=== PATIENT | male | born 1960 | race Caucasian/White ===

== ENCOUNTER → 2021-03-07 13:38 | Outpatient (BNVA) | payer OTHER, MEDICARE, SELFPAY | PROVIDERS: Visit Provider Surgery | DX: Z12.11 Encounter for screening for malignant neoplasm of colon (principal); Z20.822 Contact with and (suspected) exposure to COVID-19 | CPT/HCPCS: 87635 ==

== ENCOUNTER → 2021-03-21 13:00 | Outpatient (BNVA) | payer MEDICARE, OTHER, SELFPAY | PROVIDERS: Visit Provider Surgery | DX: Z20.822 Contact with and (suspected) exposure to COVID-19 (principal); Z11.52 Encounter for screening for COVID-19 | CPT/HCPCS: 87635 ==

== ENCOUNTER 2021-03-27 06:49 | Day surgery (SDC) | payer MEDICARE, OTHER, SELFPAY ==
[2021-03-11 13:36] VITALS: BMI 34.9
--- NOTE | 2021-03-27 07:13 | P.ANESASSM_ITS ---
Pre-Anesthetic Assessment Pre-Anesthetic Assessment: Height/Weight: Height 1.73 m Weight 104.326 kg Preop Diagnosis: screening Proposed Procedure: Operation Date: 03/27/21 08:15 Proposed Procedures p Colonoscopy 11979 Z12.11(Not Applicable) - Blas Avila MD Familial anesthetic complications: None (though states he had a colonoscopy without sedation before and it stressed him out so much he almost went into crisis) Last intake: > 8hrs Social: Social History: Tobacco and No alcohol Exam: Pre-Anes Outpt Exam: alert, oriented x 3, clear to auscultation bilaterally and regular rate & rhythm Airway: MP: 4 Dentition: Caps and Other ( they fixed all up 2 weeks ago ) Additional comments: large neck and tongue Pulmonary: Pulmonary: COPD (bronchitis - Takes albuterol inhaler) and Sleep apnea (central and obstructive) 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 States he will take his stress dose before procedure (he has medication with him). Neuropsych: Comments: Parkinson's Anesthetic Plan: ASA status: 3 Anesthesia: MAC Risk of > 500 ml blood loss (7ml/kg in children): No Other Pertinent Information: Check glucose - states low glucose can trigger an addisonian crisis PFSH Anesthesia PFSH: Social History Smoking and tobacco status: never smoked Data Anesthesia Cardiac Studies: No Data to Display
--- NOTE | 2021-03-27 08:00 | P.HP_ITS ---
Same Day Surgery H&P Indication for Procedure/HPI DATE OF PROCEDURE: March 27, 2021 CHIEF COMPLAINT/INDICATIONFOR SURGICAL PROCEDURE: Screening colonoscopy PREOP DIAGNOSIS: screeningColonoscopy PLANNED PROCEDRUE: Operation Date: 03/27/21 08:15 Proposed Procedures p Colonoscopy 17275 Z12.11(Not Applicable) - Blas Avila MD 01/24/2021 This is a pleasant 60 years old gentleman referred to my practice for screening colonoscopy. Patient denies history of bleeding per rectum or colon cancer and also denies nonintentional weight loss. Had a colonoscopy back in 2004 and was found to have diverticulosis. 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 daily. And he would receive additional doses at stress episodes. Patient also reports that he has history of Parkinson's disease. And he has been on steroids for the past 10 years and denies being on any PPI therapy. Interim history 03/27/2021 Patient comes today for screening colonoscopy Patient may Mention to me that he really had 10 mg of hydrocortisone today as a stress dose ROS All systems have been reviewed negative except as per the above or per problem list Medications/Allergies* Home Medications Medication Instructions Recorded Confirmed Type benztropine 0.5 mg tablet 0.5 mg PO DAILY 01/24/21 03/27/21 History carbidopa 25 mg-levodopa 100 mg 1 tab PO TID 01/24/21 03/27/21 History tablet citalopram 40 mg tablet 40 mg PO DAILY 01/24/21 03/27/21 History ergocalciferol (vitamin D2) 1,250 50,000 unit PO DAILY cap 01/24/21 03/27/21 History mcg (50,000 unit) capsule hydrocortisone 10 mg tablet 10 mg PO TID 01/24/21 03/27/21 History hydroxyzine pamoate 50 mg capsule 50 mg PO BID 01/24/21 03/27/21 History cyanocobalamin (vitamin B-12) 2,500 mcg SUBLINGUAL DAILY 03/11/21 03/27/21 History [Vitamin B-12] epinephrine [Epi E-Z Pen] 0.3 mg IM PRN PRN 03/11/21 03/27/21 History ferrous sulfate 27 mg PO DIRECTED 03/11/21 03/27/21 History kmmhunozmmvg-loapijmz-uvafot 1 tab PO DAILY 03/11/21 03/27/21 History [Multivitamin 50 Plus] vitamin K2 100 mcg PO DAILY 03/11/21 03/27/21 History Allergies/Adverse Reactions Allergy/AdvReac Type Severity Reaction Status Date / Time ropinirole [From Requip] Allergy Severe Unknown Verified 03/27/21 09:12 Pertinent History/Comorbid Conditions* Social History Smoking and tobacco status: never smoked Pertinent Exam Findings alert, oriented x 3, clear to auscultation bilaterally, regular rate & rhythm and procedure specific exam findings (Abdominal examination nontender nondistended soft) Recommendations Surgery/Procedure today (Colonoscopy with possible Bx) Other Plans: Plan of care; After thorough history and physical examination and reviewing the chart, plan to perform screening colonoscopy. I discussed with the patient in details the risks,benefits,alternatives and indications.The risk of aspiration, bleeding, soft tissue injury, perforation of the colon and other potential concomitant complications were explained to the patient in details,also the potential need for Laproscoy/Laparotomy to repair any related complications including but not limited to colectomy and or Closotomy.The patient understood this well and did agree to proceed. Rationale was carefully and clearly discussed with the patient.Appropriate informed consent have been reviewed and signed All questions have been answered and all concerns have been addressed to patient's satisfaction. Verbal and written Instructions were given to the patient for colonoscopy prep Coding Level of Care Code Acute [employer] for Ramila Alfonso
[2021-03-27] MEDS: sodium chloride 0.9% 1,000 ML 30 ML IV (08:11)
[2021-03-27 08:18] VITALS: BP 160/104; PULSE 89; RESP 18; TEMP 36.2; O2SAT 97
[2021-03-27 10:10] VITALS: BP 100/63; PULSE 66; RESP 16; TEMP 36.6; O2SAT 98
[2021-03-27 10:43] VITALS: BP 150/105; PULSE 66; RESP 18; O2SAT 95
--- NOTE | 2021-03-27 11:31 | ANE.PACU2 ---
Inpatient post-anesthesia follow up: Airway intact: Yes Vital signs: Temperature 97.8 F Pulse Rate 66 Respiratory Rate 18 Blood Pressure 150/105 Pulse Oximetry 95 Oxygen Delivery Me thod Simple Mask Oxygen Flow Rate 6 Fraction of Inspir ed Oxygen Hydration adequate: Yes Mental status: Baseline
== END 2021-03-27 11:20 | disposition home or self-care (01) ==
PROVIDERS: PCP Family Medicine; Visit Provider Surgery
PROC: 0DJD8ZZ Inspection of Lower Intestinal Tract, Via Natural or Artificial Opening Endoscopic (ICD-10-PCS; CPT 45378; principal; 2021-03-27 08:15)
DX: Z12.11 Encounter for screening for malignant neoplasm of colon (principal); E27.1 Primary adrenocortical insufficiency; Z79.52 Long term (current) use of systemic steroids; G20 Parkinson's disease; D12.5 Benign neoplasm of sigmoid colon; K57.30 Diverticulosis of large intestine without perforation or abscess without bleeding; J44.9 Chronic obstructive pulmonary disease, unspecified; G47.33 Obstructive sleep apnea (adult) (pediatric)
CPT/HCPCS: 45385; 88305; 96360; 96361; J2704; J7030

== ENCOUNTER 2023-01-19 13:52 | Outpatient (CLI) | payer MEDICARE, OTHER, SELFPAY ==
--- NOTE | 2023-01-19 13:57 | CT_ITS ---
WS: [id number] CT NECK TECHNIQUE: Contrast-enhanced CT of the neck with coronal and sagittal reformatted images. CLINICAL INFORMATION: DYSPHONIA COMPARISON: None. DLP: 166.[address] scans at [facility] use at least one of these dose optimization techniques: automated e xposure control; mA and/or kV adjustment per patient size (includes targeted exams where dose is matc hed to clinical indication); or iterative reconstruction. FINDINGS: Mastoid air cells are well aerated. Paranasal sinuses are well aerated. Parotid glands are normal. No rmal submandibular glands. Normal posterior nasopharynx. Normal parapharyngeal fat. No evidence of abraham praglottic or glottic mass. Normal piriform sinuses. Normal glottis. Normal subglottic airway. Normal thyroid gland. Aortic calcification. Dense carotid bulb calcification LEFT carotid stent. Dense atheromatous plaque RIGHT carotid bulb wit h significant stenosis. Tiny residual lumen. Recommend further evaluation with CTA neck. Mild spondyl itic changes cervical spine. IMPRESSION: 1. Severe RIGHT ICA stenosis with dense carotid bulb calcification. Tiny residual ICA lumen. Recomme nd further evaluation with CTA neck. 2. LEFT carotid stent appears patent. 3. No evidence of supraglottic or glottic mass. Normal subglottic airway. 4. Salivary glands are normal. 5. No cervical lymphadenopathy.
[2023-01-19 14:31] LABS: Blood Urea Nitrogen 12 mg/dL (8-23); Glomerular Filtration Rate 61.6 mL/min (90-130)
[2023-01-19] MEDS: iohexol 350 mg/mL 500 mL Btl (per mL) IV (14:51)
== END 2023-01-19 13:53 | disposition home or self-care (01) ==
PROVIDERS: PCP Family Medicine; Visit Provider Specialist
DX: R49.0 Dysphonia (principal); I65.21 Occlusion and stenosis of right carotid artery; Z95.828 Presence of other vascular implants and grafts
CPT/HCPCS: 70491; 82565; 84520; Q9967

== ENCOUNTER 2023-02-17 14:09 | Outpatient (CLI) | payer MEDICARE, OTHER, SELFPAY ==
--- NOTE | 2023-02-17 14:12 | CT_ITS ---
WS: [id number] CTA NECK TECHNIQUE: Contrast enhanced CTA of the neck with coronal and sagittal reformatted images and maximum intensity projection (MIP) images. NASCET criteria utilized. CLINICAL INFORMATION: OCCLUSION STENOSIS OF R CAROTID ARTERY COMPARISON: None. DLP: 400.[address] scans at [facility] use at least one of these dose optimization techniques: automated e xposure control; mA and/or kV adjustment per patient size (includes targeted exams where dose is matc hed to clinical indication); or iterative reconstruction. FINDINGS: RIGHT: RIGHT common carotid artery is patent. Significant stenosis RIGHT proximal ICA with calcified atheromatous disease. Small residual ICA lumen. RIGHT ICA remains patent to the skull base. RIGHT ICA stenosis measures approximately 70%. LEFT: LEFT carotid artery is patent. Moderate calcified atheromatous plaque LEFT carotid bulb extendi ng into the ICA. LEFT carotid stent. LEFT carotid stent is patent. LEFT ICA remains patent to the sku ll base. Vertebral arteries are patent. Severe stenosis of the LEFT vertebral artery origin with calcified ath eromatous plaque. Vertebral arteries are patent to the basilar junction. Proximal basilar artery is p atent. Mastoid air cells are well aerated. Mild mucosal thickening in the ethmoid air cells. IMPRESSION: 1. RIGHT ICA stenosis measures 70% with dense calcified atheromatous plaque. 2. LEFT carotid stent without significant recurrent stenosis. 3. Vertebral arteries are patent. Severe stenosis of the LEFT vertebral artery origin. Both vertebra ls are patent to the basilar junction. 4. No other remarkable findings.
[2023-02-17] MEDS: iohexol 350 mg/mL 500 mL Btl (per mL) IV (15:07)
== END 2023-02-17 14:10 | disposition home or self-care (01) ==
LOC: RAD 14:10
PROVIDERS: PCP Family Medicine; Visit Provider Specialist
DX: I65.21 Occlusion and stenosis of right carotid artery (principal); Z95.828 Presence of other vascular implants and grafts; I65.02 Occlusion and stenosis of left vertebral artery
CPT/HCPCS: 70498; Q9967